=== PATIENT | male | born 1955 | race Caucasian/White ===

== ENCOUNTER → 2017-01-30 | Outpatient (CLI) | payer MEDICAID | LOC: FIMAGING 16:28 → EDSTATUS 16:29 | PROVIDERS: ATTEND Nurse Practitioner Adult Health | DX: Z95.0 Presence of cardiac pacemaker (principal) ==

== ENCOUNTER → 2017-02-06 | Outpatient (CLI) | payer MEDICAID | LOC: CIMAGING 09:11 | PROVIDERS: ATTEND Family Medicine | DX: M17.11 Unilateral primary osteoarthritis, right knee (principal) | CPT/HCPCS: 73562-PO ==

== ENCOUNTER → 2018-04-16 | Outpatient (CLI) | payer MEDICAID | LOC: CIMAGING 11:02 | PROVIDERS: ATTEND Family Medicine | DX: J40 Bronchitis, not specified as acute or chronic (principal); J18.9 Pneumonia, unspecified organism | CPT/HCPCS: 71046-PO ==

== ENCOUNTER → 2018-05-03 | Outpatient (CLI) | payer MEDICAID | LOC: CIMAGING 09:40 | PROVIDERS: ATTEND Family Medicine | DX: J18.9 Pneumonia, unspecified organism (principal) | CPT/HCPCS: 71046-PO ==

== ENCOUNTER → 2018-05-29 | Outpatient (CLI) | payer MEDICAID | LOC: CIMAGING 10:24 | PROVIDERS: ATTEND Family Medicine | DX: J18.9 Pneumonia, unspecified organism (principal); J98.11 Atelectasis; Z95.0 Presence of cardiac pacemaker | CPT/HCPCS: 71046-PO ==

== ENCOUNTER → 2018-06-11 | Outpatient (CLI) | payer MEDICAID | LOC: FIMAGING 10:19 | PROVIDERS: ATTEND Family Medicine | DX: R91.8 Other nonspecific abnormal finding of lung field (principal); J98.11 Atelectasis; M47.814 Spondylosis without myelopathy or radiculopathy, thoracic region; Z87.81 Personal history of (healed) traumatic fracture ==

== ENCOUNTER 2018-07-02 13:42 | Day surgery (SDC) | payer MEDICAID | END 2018-07-02 17:15 | disposition home or self-care (01) | LOC: FSGY 13:42 ==

== ENCOUNTER 2018-07-15 07:12 | Day surgery (SDC) | payer MEDICAID ==
--- NOTE | 2018-04-17 09:48 | GHP ---
DATE OF ADMISSION: 04/18/2018 CHIEF COMPLAINT: Left groin bulge. HISTORY OF PRESENT ILLNESS: This is a 63-year-old male who presents today with a bulge in his left g roin. He reports that he has had it for several months. About 2 months ago, he was carrying heavy b ags of tree limbs when he began to feel pain in this location. He denies fever and chills. PAST MEDICAL HISTORY: Cardiomyopathy, hypertension, pacemaker, sick sinus syndrome. PAST SURGICAL HISTORY: Pacemaker placement. MEDICATIONS: Aspirin 81 mg, Coreg 3.125 mg, probiotics. ALLERGIES: No known drug allergies. FAMILY MEDICAL HISTORY: Coronary artery disease. SOCIAL HISTORY: The patient is a nonsmoker. PHYSICAL EXAM: GENERAL: Well appearing, well dressed, no acute distress. HEENT: Eyes anicteric. Pupils are equal and round. Head is normocephalic, atraumatic, no gross hearing deficits. Mucous me mbranes are moist. CARDIAC: Regular rate and rhythm, no clicks, murmurs, or rubs. RESPIRATORY: Cl ear to auscultation bilaterally. No increased work of breathing. ABDOMEN: Soft, nontender, nondist ended. There is a reducible bulge in the left inguinal region. MUSCULOSKELETAL: Moves all extremit ies equally. PSYCHIATRIC: Appropriate mood and affect. NEUROLOGIC: Alert and oriented x3. IMPRESSION/PLAN: This is a patient with significant cardiac history, who presents today with a left inguinal hernia that has been present for some time. We discussed all risks and options. Risks of s urgery include, but are not limited to infection, bleeding, recurrence, damage to surrounding structu res, including spermatic cord, bowel, and bladder, heart attack, and . Patient understands and wishes to proceed. We will plan for laparoscopic left inguinal hernia repair with mesh. This patien t has received cardiac clearance prior to surgery. /[id number]/MODL
[~2018-07-15 07:12] MED LIST: MIDAZOLAM 2 MG/2 ML VIAL ONE; PROPOFOL/EMULSION 500 MG/50 ML BOTTLE IV ONE; ceFAZolin 2 GM/DEXTROSE 100 ML IV ONE; fentaNYL 100 MCG/2 ML INJ ONE
[2018-07-15] MEDS ORDERED: ceFAZolin 2 GM/DEXTROSE 100 ML IV ONE (07:50)
[2018-07-15] MEDS ORDERED: LR 1,000 ML IV ONE (07:50)
[2018-07-15] MEDS ORDERED: BUPIVACAINE 0.5% 30 ML SDV ONE (08:51)
--- NOTE | 2018-07-15 09:40 | PDHPUP ---
History & Physical Update H&P update statement: This history and physical update is based on an assessment of the patient which was completed after admission or registration (within 24 hours), but prior to the surgery/procedure. H&P update: H&P reviewed & patient examined, no change in patient's condition since H&P completed
[2018-07-15] MEDS ORDERED: fentaNYL 100 MCG/2 ML INJ ONE ×4 (10:06→14:50)
[2018-07-15] MEDS ORDERED: PROPOFOL 200 MG/20 ML VIAL ONE (10:06)
--- NOTE | 2018-07-15 10:06 | PDANEPAE ---
ANE Past Medical History - Cardiovascular History Hx Hypertension: Yes Hx Arrhythmias: No Hx Chest Pain: No Hx Coronary Artery / Peripheral Vascular Disease: Yes Hx Palpitations: No Cardiovascular History Comment: SSS. CARDIOMYOPATHY - Pulmonary History Hx COPD: No Hx Asthma/Reactive Airway Disease: No Hx Recent Upper Respiratory Infection: No Hx Oxygen in Use at Home: No Hx Sleep Apnea: No Sleep Apnea Screening Result - Last Documented: Negative Pulmonary History Comment: BRONCH 06/2018. PNEUMONIA 03/2018. R MIDDLE LOBE ATELECTASIS. PREVIOUS PNA 12 YRS AGO - Neurologic History Hx Cerebrovascular Accident: No Hx Seizures: No Hx Dementia: No - Endocrine History Hx Diabetes: No - Renal History Hx Renal Disorders: No - Liver History Hx Hepatic Disorders: No - Neurological & Psychiatric Hx Hx Neurological and Psychiatric Disorders: No - Cancer History Hx Cancer: No - Congenital Disorder History Hx Congenital Disorders: No - GI History Hx Gastrointestinal Disorders: No - Other Health History Other Health History: NEG - Chronic Pain History Chronic Pain: Yes (NECK PAIN ON & OFF) - Surgical History Prior Surgeries: BRONCHOSCOPPY 06/2018. PACEMAKER PLACEMENT. HERNIA SURGERY. 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[employer] Date Pacemaker Last Checked: 06/14/18 ANE Patient History - Allergies Allergies/Adverse Reactions: No Known Allergies Allergy (Unverified 05/24/09 08:07) - Home Medications Home Medications: Aspirin 81mg DAILY 07/26/09 [Last Taken 07/15/18 06:30] COREG CR BID 07/26/09 [Last Taken 07/15/18 0630] Herbals/Supplements -Info Only PO 06/27/18 [Last Taken 07/14/18] - NPO status NPO Since - Liquids (Date): 07/15/18 NPO Since - Liquids (Time): 06:30 NPO Since - Solids (Date): 07/14/18 NPO Since - Solids (Time): 18:00 - Smoking Hx Smoking Status: Never smoked - Family Anes Hx Family Hx Anesthesia Complications: NEG ANE Labs/Vital Signs - Vital Signs Vital Signs: reviewed preoperatively; see RN documention for details Blood Pressure: 105/77 Heart Rate: 71 Respiratory Rate: 18 O2 Sat (%): 98 Height: 180.34 cm Weight: 61.235 kg ANE Physical Exam - Airway Neck exam: FROM Mallampati Score: Class 1 Mouth exam: normal dental/mouth exam - ASA Status ASA Status: II ANE Anesthesia Plan Anesthesia Plan: general endotracheal anesthesia
[2018-07-15] MEDS ORDERED: DEXAMETHASONE 4 MG/ML VIAL ONE (10:22)
[2018-07-15] MEDS ORDERED: cefOXitin SODIUM 2 GM in NS 100 ML IV ONE (10:41)
[2018-07-15] MEDS ORDERED: ROCURONIUM 50 MG/5 ML VIAL ONE ×2 (12:20)
[2018-07-15] MEDS ORDERED: KETOROLAC 30 MG/1 ML SDV ONE (12:20)
[2018-07-15] MEDS ORDERED: ONDANSETRON 4 MG/2 ML VIAL ONE (12:20)
[2018-07-15] MEDS ORDERED: ePHEDrine SULFATE 25 MG/5 ML SYR ONE (12:22)
[2018-07-15] MEDS ORDERED: ALBUTEROL 3 ML DEYVIAL IH PRN (12:27)
[2018-07-15] MEDS ORDERED: PROMETHAZINE HCL 25 MG/ML INJ IVP PRN (12:27)
[2018-07-15] MEDS ORDERED: ONDANSETRON 4 MG/2 ML VIAL IVP PRN (12:27)
[2018-07-15] MEDS ORDERED: MEPERIDINE 25 MG/0.5 ML AMP IVP PRN (12:27)
[2018-07-15] MEDS ORDERED: METOCLOPRAMIDE 10 MG/2 ML VIAL IVP PRN (12:27)
[2018-07-15] MEDS ORDERED: HYDROmorphONE/DILAUDID 2 MG/ML INJ IVP PRN (12:27)
[2018-07-15] MEDS ORDERED: NALOXONE HCL 0.4 MG/ML INJ IVP PRN (12:27)
[2018-07-15] MEDS ORDERED: LR 500 ML IV PRN (12:27)
[2018-07-15] MEDS ORDERED: GLYCOPYRROLATE 0.2 MG/1 ML VIAL ONE (12:46)
[2018-07-15] MEDS ORDERED: NEOSTIGMINE METHYLSULFATE 5 MG/5 ML SYR ONE (12:46)
--- NOTE | 2018-07-15 13:12 | POSTOPPROG ---
Post Op Note Date of Operation: 07/15/18 Surgeon: Savage Franco Pulling Machine Operator: Ne Abad Anesthesiologist: My Calzada Anesthesia: GET(General Endotracheal) Pre-op Diagnosis: left inguinal hernia, hx lap right inguinal hernia repair Post-op Diagnosis: same Procedure: robotic assisted LIH repair c mesh, decompressive colonoscopy Findings: indirect defect, distended colon, possible insufflation of colon Inf/Abcess present in the surg proc area at time of surgery?: No EBL: Minimal Complications: none Specimen(s): none
--- NOTE | 2018-07-15 13:23 | POSTANESTH ---
Post Anesthetic Evaluation Cardiovascular Status: Normal, Stable Respiratory Status: Normal, Stable Level of Consciousness/Mental Status: Can Participate in Eval Pain Control: Adequate, Prn Tx Ordered Nausea/Vomiting Control: Adequate, Prn Tx Ordered Complications Possibly Related to Anesthesia: None Noted
[2018-07-15] MEDS: fentaNYL 100 MCG/2 ML INJ IVP PRN ×4 (13:30→14:52)
[2018-07-15] MEDS ORDERED: OXYCODONE/APAP 5/325 TAB PO PRN (15:25)
[2018-07-15 16:47] VITALS: BP 137/62
--- NOTE | 2018-07-15 21:30 | GOP ---
[f rep st] OPERATIVE REPORT DATE OF OPERATION: 07/15/2018 SURGEON: Savage Franco MD STREET FLUSHER DRIVER: DMITRI Maki. ANESTHESIA: My Calzada MD. PREOPERATIVE DIAGNOSIS: Recurrent left inguinal hernia. POSTOPERATIVE DIAGNOSIS: Recurrent left inguinal hernia. PROCEDURE PERFORMED: 1. Robotically assisted laparoscopic recurrent left inguinal hernia repair. 2. Limited colonoscopy. FINDINGS: A direct recurrent right inguinal hernia/ extensive colonic gas and distension DESCRIPTION OF PROCEDURE: The patient was taken to the operating room where he received a satisfactory general endotracheal anesthesia by Dr. Calzada. He was placed in a supine position, prepped and draped in the usual sterile fashion. A supraumbilical incision was made. A Veress needle inserted. Pneumoperitoneum was established. A trocar was introduced, and the scope was introduced. However, at that point, the colon was seen to be massively distended throughout and there also appeared to be a possible tiny puncture wound to the colon. There was no spillage. No evidence of leakage from the colon and no other abnormalities, but the colon was so distended, it was not feasible to do a laparoscopic surgery. Colonoscope was brought in, and a colonoscope was introduced and passed up to 40 cm blindly and suction was done evacuating a large amount of air in the colon. The small area of potential injury to the colon was exam and again appeared to be minor to not full- thickness and possibly not related to this laparoscopic initiation. Eventually the colon appeared to be adequately decompressed, and the colonoscope was removed. The patient was prepped and draped in the usual sterile fashion again. The 2 other trocars were placed under direct vision on either side of the midline port. The robot was then brought in and docked to the midline port. It was then targeted for the left inguinal hernia and then the remaining trocars were docked to the robot. Instruments were introduced. At that point, the peritoneum was incised laterally and above the inguinal floor and extending medially over to the umbilical ligament. The peritoneum was then dissected away from the inguinal floor exposing Marcus ligament up to the edge of the femoral vein, freeing it off the epigastric vessels and freeing it out laterally well down to the psoas muscle. The direct defect was dissected free and that sac was reduced away from the floor of the inguinal canal, and the cord structures were dissected free. A small tiny indirect sac was also dissected free and all this was reduced back away from the cord. The mesh was introduced. We used light 3DMax. It was positioned in place in this pocket retroperitoneally. It was anchored in place with 3-0 Vicryl sutures to the pubic tubercle, to the pubis just below the femoral canal, and to the anterior abdominal wall above the direct hernia defect. Once positioned in place, then the peritoneum was closed with a running 2-0 Versalok suture. The peritoneum was closed around the entire circumference of the wound. Excess hernia sac was also sutured up bolstering the closure as well. Pneumoperitoneum was then released. We returned to the colon area and reexamined it, and again there was no bleeding, no discharge, no air bubbling out, and the colon was markedly decompressed at this point. Trocars were removed under direct vision. Trocar sites were closed with 4-0 Monocryl subcuticular stitch for the skin. All layers infiltrated with 0.5% Marcaine. He tolerated the procedure well. There were no complications. He was taken to the recovery room in good condition. It should be noted on the colonoscopy, that he had excellent colon prep with no evidence of any bleeding or injuries within the colon itself on that short colonoscopy exam. /[id number]/MODL MTDD
== END 2018-07-15 16:36 | disposition home or self-care (01) ==
LOC: FSGY 07:12
PROVIDERS: ATTEND Surgery
PROC: 0D7E8ZZ Dilation of Large Intestine, Via Natural or Artificial Opening Endoscopic (ICD-10-PCS; principal; 2018-07-15 10:00)
PROC: 0YU64JZ Supplement Left Inguinal Region with Synthetic Substitute, Percutaneous Endoscopic Approach (ICD-10-PCS; principal; 2018-07-15 10:00)
DX: K40.91 Unilateral inguinal hernia, without obstruction or gangrene, recurrent (principal); R14.0 Abdominal distension (gaseous); I11.9 Hypertensive heart disease without heart failure; I51.9 Heart disease, unspecified; I42.9 Cardiomyopathy, unspecified; I49.5 Sick sinus syndrome; Z95.0 Presence of cardiac pacemaker; Z82.49 Family history of ischemic heart disease and other diseases of the circulatory system
CPT/HCPCS: C1781; J0690; J0694; J1100; J1885; J2250; J2270; J2405; J2704; J2710; J3010